=== PATIENT | male | born 2000 | race Caucasian/White ===

== ENCOUNTER 2022-06-11 09:25 | Emergency (ER) | payer OTHER ==
[~2022-06-11] VITALS: Ht 182.9 cm; Wt 60.0 kg
[2022-06-11 09:40] VITALS: BP 115/74
[2022-06-11] MEDS ORDERED: IBUP600T28 PO (11:51)
== END 2022-06-11 12:00 | disposition home or self-care (01) ==
LOC: ER 09:25
DX: S63.502A Unspecified sprain of left wrist, initial encounter (principal); V00.311A Fall from snowboard, initial encounter; Y93.23 Activity, snow (alpine) (downhill) skiing, snowboarding, sledding, tobogganing and snow tubing; Y92.89 Other specified places as the place of occurrence of the external cause; Y99.8 Other external cause status
CPT/HCPCS: 73110